=== PATIENT | female | born 1990 | race American Indian/Alaskan Native ===

== ENCOUNTER 2019-10-20 15:36 | Emergency (ER) | payer OTHER ==
[~2019-10-20] VITALS: Ht 157.5 cm; Wt 128.8 kg
[2019-10-20 15:51] VITALS: Ht 157.5 cm; Wt 128.8 kg
[2019-10-20 16:55] LABS: CALCIUM 8.6 mg/dL (8.5-10.1); CARBON DIOXIDE 30.1 mmol/L (21-32); CHLORIDE SERUM 106 mmol/L (98-107); CREATININE SERUM 0.5 mg/dL (0.6-1.0); GFR1 > 60 mL/min; GLUCOSE SERUM 94 mg/dL (74-106); POTASSIUM SERUM 3.5 mmol/L (3.5-5.1); SODIUM SERUM 145 mmol/L (136-145)
[2019-10-20 16:59] LABS: ALBUMIN 3.6 g/dL (3.4-5.0); ALKALINE PHOSPHATASE 92 U/L (46-116); ALT/SGPT 68 U/L (14-59); AST/SGOT 39 U/L (15-37); BILIRUBIN TOTAL 0.4 mg/dL (0.20-1.00); TOTAL PROTEIN, SERUM 7.2 g/dL (6.4-8.2)
[2019-10-20 17:01] LABS: BASOPHIL % 0.3 % (0-2); PLATELET COUNT 302 x10^3mcL (130-400); RED CELL DISTRIBUTION WIDTH 15.8 % (11.5-14.5)
[2019-10-20 18:46] VITALS: BP 143/74
== END 2019-10-20 18:46 | disposition home or self-care (01) ==
LOC: ED 15:36
PROVIDERS: Emergency Medicine
DX: R10.30 Lower abdominal pain, unspecified (principal); E66.9 Obesity, unspecified; Z68.43 Body mass index [BMI] 50.0-59.9, adult
CPT/HCPCS: 36415; J1885

== ENCOUNTER 2020-03-28 18:54 | Emergency (ER) | payer OTHER ==
[~2020-03-28] VITALS: Ht 157.5 cm; Wt 127.5 kg
[2020-03-28 19:08] VITALS: Ht 157.5 cm; Wt 127.5 kg
[2020-03-28 21:05] VITALS: BP 111/48
== END 2020-03-28 21:05 | disposition home or self-care (01) ==
LOC: ED 18:54
DX: F41.9 Anxiety disorder, unspecified (principal); I10 Essential (primary) hypertension

== ENCOUNTER 2020-04-29 18:54 | Emergency (ER) | payer OTHER, SELFPAY ==
[~2020-04-29] VITALS: Ht 157.5 cm; Wt 119.7 kg
[2020-04-29 18:56] VITALS: BP 134/84; Ht 157.5 cm; Wt 119.7 kg
== END 2020-04-29 19:45 | disposition home or self-care (01) ==
LOC: ED 18:54
DX: U07.1 COVID-19 (principal); I10 Essential (primary) hypertension
CPT/HCPCS: U0003-CS

== ENCOUNTER 2020-05-06 21:55 | Emergency (ER) | payer OTHER, SELFPAY ==
[~2020-05-06] VITALS: Ht 157.5 cm; Wt 121.6 kg
[2020-05-06 21:57] VITALS: Ht 157.5 cm; Wt 121.6 kg
[2020-05-06 23:20] LABS: BASOPHIL % 0.5 % (0-2); PLATELET COUNT 245 x10^3mcL (130-400)
[2020-05-06 23:21] LABS: RED CELL DISTRIBUTION WIDTH 15.2 % (11.5-14.5)
[2020-05-07 00:10] LABS: CALCIUM 8.9 mg/dL (8.5-10.1); CARBON DIOXIDE 30.5 mmol/L (21-32); CHLORIDE SERUM 107 mmol/L (98-107); CREATININE SERUM 0.6 mg/dL (0.6-1.0); GFR1 > 60 mL/min; GLUCOSE SERUM 118 mg/dL (74-106); POTASSIUM SERUM 3.9 mmol/L (3.5-5.1); SODIUM SERUM 143 mmol/L (136-145)
[2020-05-07 01:03] VITALS: BP 118/65
== END 2020-05-07 01:07 | disposition home or self-care (01) ==
LOC: ED 21:55
PROVIDERS: Emergency Medicine
DX: U07.1 COVID-19 (principal); J12.89 Other viral pneumonia; I10 Essential (primary) hypertension
CPT/HCPCS: Q0092

== ENCOUNTER 2020-05-13 11:59 | Emergency (ER) | payer OTHER, SELFPAY ==
[~2020-05-13] VITALS: Ht 157.5 cm; Wt 119.7 kg
[2020-05-13 12:00] VITALS: BP 129/76; Ht 157.5 cm; Wt 119.7 kg
== END 2020-05-13 13:49 | disposition home or self-care (01) ==
LOC: ED 11:59
DX: U07.1 COVID-19 (principal); I10 Essential (primary) hypertension; E66.01 Morbid (severe) obesity due to excess calories; Z68.42 Body mass index [BMI] 45.0-49.9, adult; Z13.9 Encounter for screening, unspecified